=== PATIENT | female | born 1950 | race Caucasian/White ===

== ENCOUNTER 2016-02-22 12:50 | Outpatient (RCR) | payer OTHER | END 2016-03-11 | disposition home or self-care (01) | LOC: PTY 12:50 | DX: M25.511 Pain in right shoulder (principal); M43.02 Spondylolysis, cervical region; M75.01 Adhesive capsulitis of right shoulder; M81.0 Age-related osteoporosis without current pathological fracture ==

== ENCOUNTER 2016-05-05 13:35 | Outpatient (RCR) | payer OTHER | END 2016-05-09 | disposition home or self-care (01) | LOC: PTY 13:35 | DX: M25.511 Pain in right shoulder (principal); M43.02 Spondylolysis, cervical region; M75.01 Adhesive capsulitis of right shoulder; M81.0 Age-related osteoporosis without current pathological fracture ==

== ENCOUNTER 2016-05-27 12:54 | Outpatient (RCR) | payer OTHER | END 2016-06-08 | disposition home or self-care (01) | LOC: PTY 12:54 | DX: M25.511 Pain in right shoulder (principal); M43.02 Spondylolysis, cervical region ==

== ENCOUNTER 2016-06-24 14:00 | Outpatient (RCR) | payer OTHER | END 2016-07-09 | disposition home or self-care (01) | LOC: PTY 14:00 | DX: M25.511 Pain in right shoulder (principal); M43.02 Spondylolysis, cervical region ==

== ENCOUNTER 2016-07-15 13:45 | Outpatient (RCR) | payer OTHER | END 2016-08-08 | disposition home or self-care (01) | LOC: PTY 13:45 | DX: M25.511 Pain in right shoulder (principal); M43.02 Spondylolysis, cervical region ==

== ENCOUNTER 2017-01-06 13:22 | Outpatient (RCR) | payer OTHER | END 2017-01-08 | disposition home or self-care (01) | LOC: PTY 13:22 | DX: M25.562 Pain in left knee (principal); S16.1XXA Strain of muscle, fascia and tendon at neck level, initial encounter ==

== ENCOUNTER 2017-02-05 15:45 | Outpatient (RCR) | payer OTHER | END 2017-02-08 | disposition home or self-care (01) | LOC: PTY 15:45 | DX: M25.562 Pain in left knee (principal); G89.29 Other chronic pain; S16.1XXD Strain of muscle, fascia and tendon at neck level, subsequent encounter ==